=== PATIENT | female | born 1980 | race African-American/Black ===

== ENCOUNTER 2024-05-12 21:52 | Inpatient (IN) | payer MEDICAID, OTHER ==
[~2024-05-12] VITALS: Ht 147.3 cm; Wt 63.8 kg
[2024-05-12 22:14] VITALS: PULSE 105; RESP 16; O2SAT 100
[2024-05-12 22:24] LABS: Basophils # (auto) 0.1 10 ^3/uL (0-0.2); Basophils % (auto) 1.2 % (0.0-2.0); Eosinophils # (auto) 0 10 ^3/uL (0-0.8); Hematocrit 33.6 % (36.0-46.0); Hemoglobin 10.7 g/dL (12.2-16.2); Lymphocytes # (auto) 1.4 10 ^3/uL (0.4-5.4); Lymphocytes % (auto) 28.4 % (10.0-50.0); Mean Corpuscular Hemoglobin 30.3 pg (28.0-32.0); Mean Corpuscular Hgb Conc. 31.8 g/dL (32.0-36.0); Mean Corpuscular Volume 95.5 fL (80.0-100.0); Monocytes # (auto) 0.3 10 ^3/uL (0-1.3); Monocytes % (auto) 5.7 % (0.0-12.0); Neutrophils # (auto) 3.1 10 ^3/uL (1.6-8.6); Neutrophils % (auto) 63.7 % (37.0-80.0); Nucleated Red Blood Cells % 0.1 %; Platelet Count (auto) 328 10^3/uL (140-450); Red Blood Cells 3.51 10^6/uL (4.0-5.20); White Blood Cell 4.9 10^3/uL (4.4-10.8)
[2024-05-12 22:26] LABS: Red Cell Distribution Width 20.3 % (11.8-14.3)
[2024-05-12 22:41] LABS: Alanine Aminotransferase 94 U/L (7-40); Alkaline Phosphatase 110 U/L (46-116); Anion Gap 19 (5-15); Aspartate Aminotransferase 435 U/L (13-40); BUN/Creatinine Ratio 11.8 (10.0-20.0); Blood Urea Nitrogen 8 mg/dL (9-23); Calcium 9.4 mg/dL (8.7-10.4); Carbon Dioxide 16 mmol/L (20-31); Chloride 107 mmol/L (98-107); Glucose 101 mg/dL (74-106); Potassium 2.6 mmol/L (3.5-5.1); Sodium 142 mmol/L (136-145)
[2024-05-12 22:42] LABS: Albumin 4.6 g/dL (3.2-4.8); Bilirubin, Total 0.5 mg/dL (0.2-1.0); Total Protein 8.1 g/dL (5.7-8.2)
[2024-05-12 22:50] LABS: Blood Alcohol 290.3 mg/dL (<10)
[2024-05-12] MEDS: levETIRAcetam 1000 mg/100ml 100 ML IV ONE (22:58)
[2024-05-12] MEDS: LIDOCAINE VISCOUS 2% 15ML UD MT ONE (23:04)
[2024-05-12] MEDS: MAALOX PLUS or MAALOX 30 ML PO ONE (23:04)
[2024-05-12] MEDS: IOHEXOL 300 MG/ML 100ML BOTTLE IJ ONE (23:51)
[2024-05-13] MEDS: LORazepam 2MG/ML-1ML VIAL IV ONE (00:42)
[2024-05-13] MEDS: ONDANSETRON HCL 4 MG/2 ML VIAL IV ONE (00:53)
[2024-05-13] MEDS: SODIUM CHLORIDE 0.9% 1,000 ML IV ONE (01:02)
[2024-05-13] MEDS: MORPHINE SULFATE 4 MG/ML SYR/VIAL IV ONE (02:53)
[2024-05-13] MEDS ORDERED: TEMAZEPAM 15 MG CAP PO PRN (05:15)
[2024-05-13] MEDS ORDERED: LORazepam 2MG/ML-1ML VIAL IV PRN ×2 (05:15→10:15)
[2024-05-13] MEDS ORDERED: ACETAMINOPHEN 325 MG TAB PO PRN (05:15)
[2024-05-13] MEDS: POTASSIUM CHL 20 Meq TABLET PO ONE (05:20)
[2024-05-13] MEDS: HYDROcodone-ACET 5/325MG TAB PO PRN (05:50)
[2024-05-13] MEDS: ONDANSETRON HCL 4 MG/2 ML VIAL IV PRN (05:58)
[2024-05-13 06:06] LABS: Urine Bacteria None Seen /hpf (None Seen)
[2024-05-13 06:26] LABS: Amphetamine Screen, Urine Neg (NEGATIVE); Barbiturate Scree,Urine Neg (NEGATIVE); Benzodiazephine Screen, Urine Neg (NEGATIVE); Cocaine Screen, Urine Neg (NEGATIVE)
[2024-05-13 06:27] LABS: Cannabinoid Screen, Urine Neg (NEGATIVE); Opiate Scree,Urine Pos (NEGATIVE); Phencyclidine Screen, Urine Neg (NEGATIVE)
[2024-05-13 06:28] LABS: Urine Blood Negative /uL (Negative); Urine Clarity Clear (Clear); Urine Color Yellow (Yellow); Urine Mucus FEW (None Seen); Urine Protein, UAD 1+ (Negative); Urine Specific Gravity > 1.050 (1.001-1.035); Urine Urobilinogen Normal (Negative); Urine WBC 2 /hpf (0 - 5)
[2024-05-13] MEDS: levETIRAcetam 500 MG TAB PO SCH (08:56)
[2024-05-13] MEDS: LACTULOSE 20Gm/30ML SOLN PO SCH (08:56)
[2024-05-13 09:05] VITALS: PULSE 105; RESP 16; O2SAT 97
[2024-05-13] MEDS: KETOROLAC TROMETH 30 MG/ML 1ML VIAL IV ONE (11:08)
[2024-05-13] MEDS: FOLIC ACID 1 MG, MAGNESIUM SULF SDV 50% 8 MEQ, MULTIPLE VITAMIN 10 ML, THIAMINE INJ 100... INJ SCH (12:56)
[2024-05-13] MEDS: levETIRAcetam 500 mg/100ml 100 ML IV SCH ×2 (15:05→22:07)
[2024-05-13] MEDS: diphenhdrAMINE HCL 25 MG CAP PO ONE ×2 (15:30→18:50)
[2024-05-13] MEDS: MORPHINE SULFATE INJ 2 MG/ml SYRG IV PRN (16:41)
[2024-05-13 17:45] VITALS: BP 148/92; PULSE 100; RESP 18; TEMP 98; O2SAT 100
[2024-05-13] MEDS ORDERED: GABA-339 PO (17:55)
[2024-05-13] MEDS ORDERED: LEVE750T15 PO (17:55)
[2024-05-13] MEDS ORDERED: CARV6.2517 PO (17:55)
[2024-05-13] MEDS ORDERED: AML5T PO (17:55)
[2024-05-13] MEDS ORDERED: CITA10TA8 PO (17:55)
[2024-05-13 21:00] VITALS: BP 158/97; PULSE 102; RESP 22; TEMP 98.7; O2SAT 100
[2024-05-13] MEDS: POTASSIUM CHLORIDE 40 MEQ in D5W/LACTATED RINGERS 1,000 ML IV SCH (21:47)
[2024-05-14] VITALS (8 sets, daily range): BP systolic 129–177; BP diastolic 82–99; PULSE 89–103; RESP 18–20; TEMP 98–98.5; O2SAT 96–100
[2024-05-14 07:30] LABS: Alanine Aminotransferase 46 U/L (7-40); Alkaline Phosphatase 79 U/L (46-116); Anion Gap 8 (5-15); Aspartate Aminotransferase 116 U/L (13-40); Calcium 7.5 mg/dL (8.7-10.4); Carbon Dioxide 22 mmol/L (20-31); Chloride 111 mmol/L (98-107); Glucose 103 mg/dL (74-106); Lipase 62 U/L (12-53); Potassium 3.3 mmol/L (3.5-5.1); Sodium 141 mmol/L (136-145)
[2024-05-14] MEDS ORDERED: hydrALAZINE HCL 20 MG/ML VL IV PRN (07:30)
[2024-05-14 07:31] LABS: Albumin 3.5 g/dL (3.2-4.8); Bilirubin, Total 0.8 mg/dL (0.2-1.0)
[2024-05-14 07:32] LABS: BUN/Creatinine Ratio 9.6 (10.0-20.0); Blood Urea Nitrogen < 5 mg/dL (9-23)
[2024-05-14 08:50] LABS: Basophils % (auto) 1.3 % (0.0-2.0); Eosinophils # (auto) 0.1 10 ^3/uL (0-0.8); Eosinophils % (auto) 2.2 % (0.0-7.0); Hemoglobin 8.2 g/dL (12.2-16.2); Lymphocytes # (auto) 1.2 10 ^3/uL (0.4-5.4); Monocytes # (auto) 0.2 10 ^3/uL (0-1.3)
[2024-05-14 08:57] LABS: Basophils # (auto) 0 10 ^3/uL (0-0.2); Hematocrit 25.6 % (36.0-46.0); Lymphocytes % (auto) 32.7 % (10.0-50.0); Mean Corpuscular Hemoglobin 30.7 pg (28.0-32.0); Mean Corpuscular Volume 96.1 fL (80.0-100.0); Monocytes % (auto) 5.3 % (0.0-12.0); Neutrophils # (auto) 2.2 10 ^3/uL (1.6-8.6); Neutrophils % (auto) 58.5 % (37.0-80.0); Nucleated Red Blood Cells % 0.3 %; Platelet Count (auto) 271 10^3/uL (140-450); Red Blood Cells 2.67 10^6/uL (4.0-5.20); White Blood Cell 3.8 10^3/uL (4.4-10.8)
[2024-05-14 08:59] LABS: Red Cell Distribution Width 20.5 % (11.8-14.3)
[2024-05-14 11:31] LABS: Hepatitis B Core Total AB Negative (Negative)
[2024-05-14 11:46] LABS: Hepatitis A Total Antibody Negative (Negative); Hepatitis B Surface Antibody Positive (Negative); Hepatitis B Surface Antigen Negative (Negative); Hepatitis C Antibody Negative (Negative)
[2024-05-14] MEDS: CARVEDILOL 3.125 MG TAB PO SCH (12:44)
[2024-05-14] MEDS: PANTOPRAZOLE 40 MG TAB PO ONE (18:16)
[2024-05-14] MEDS: DICYCLOMINE HCL 10 MG CAP PO SCH (21:27)
[2024-05-14] MEDS: levETIRAcetam 500 MG TAB PO SCH (21:29)
[2024-05-15] VITALS (7 sets, daily range): BP systolic 124–147; BP diastolic 85–93; PULSE 72–92; RESP 18; TEMP 36.8; O2SAT 93–100
[2024-05-15] MEDS: PANTOPRAZOLE 40 MG TAB PO SCH (06:00)
[2024-05-15 07:32] LABS: Chloride 110 mmol/L (98-107); Potassium 3.4 mmol/L (3.5-5.1); Sodium 140 mmol/L (136-145)
[2024-05-15 07:33] LABS: Anion Gap 8 (5-15); Carbon Dioxide 22 mmol/L (20-31)
[2024-05-15 07:38] LABS: Glucose 128 mg/dL (74-106)
[2024-05-15 07:39] LABS: Magnesium 1.5 mg/dL (1.6-2.6)
[2024-05-15 07:40] LABS: BUN/Creatinine Ratio 9.3 (10.0-20.0); Blood Urea Nitrogen < 5 mg/dL (9-23)
[2024-05-15] MEDS: THIAMINE HCL 100 MG TAB PO SCH (08:58)
[2024-05-15] MEDS: MULTIPLE VITAMIN TAB PO SCH (08:59)
[2024-05-15] MEDS: diphenhdrAMINE HCL 25 MG CAP PO ONE (11:16)
[2024-05-15] MEDS: POTASSIUM EFFERVESENT TAB 25 MEQ PO ONE (11:17)
== END 2024-05-15 12:55 | disposition home or self-care (01) | DRG 282 ==
LOC: EDBD 21:52 → ER 21:52 → OVERFLOW 05-13 05:09 → WEST WING 05-13 17:26 → TELE-WESTW 05-14 07:59
PROVIDERS: ADMIT Nurse Practitioner; ATTEND Nurse Practitioner Acute Care
DX: K85.20 Alcohol induced acute pancreatitis without necrosis or infection (principal); E87.6 Hypokalemia; F10.229 Alcohol dependence with intoxication, unspecified; F10.239 Alcohol dependence with withdrawal, unspecified; I10 Essential (primary) hypertension; K82.8 Other specified diseases of gallbladder; R79.89 Other specified abnormal findings of blood chemistry; Y90.9 Presence of alcohol in blood, level not specified; Z88.6 Allergy status to analgesic agent; Z88.8 Allergy status to other drugs, medicaments and biological substances; Z82.0 Family history of epilepsy and other diseases of the nervous system; Z68.29 Body mass index [BMI] 29.0-29.9, adult; G40.89 Other seizures
CPT/HCPCS: 36415; 70450; 70551; 74177; 76705; 80048; 80053; 80307; 80320; 81001; 81025; 82140; 83690; 83735; 85025; 86704; 86706; 86708; 86803; 87340; 96365; G0378; J1885; J2405